=== PATIENT | male | born 1965 | race African-American/Black ===

== ENCOUNTER 2016-11-25 11:03 | Outpatient (CLI) | payer MEDICARE, OTHER ==
[2016-11-25] MEDS ORDERED: MYSOLINE50 MG GT (14:16)
[2016-11-25] MEDS ORDERED: ZOCOR20 M1 ORAL (14:16)
[2016-11-25] MEDS ORDERED: LISINOPRIL20 MG ORAL (14:16)
[2016-11-25] MEDS ORDERED: CARVEDILOL25 MG ORAL (14:16)
[2016-11-25] MEDS ORDERED: NORCO1 E1 ORAL (14:16)
--- NOTE | 2016-11-25 14:20 | GI Initial Consult Note ---
History of Present Illness General Date patient seen: Nov 25, 2016 Time patient seen: 10:00 Referring physician: ALFONSO Reason for Consultation: BLOODY STOOLS Present Illness HPI 51 year old male referred by Dr. Canales for evaluation of bloody stools per report of the patient. Pt presents today, stated he had an episode of bloody bright red stool x 1. Has no reoccurrence since then, wishes to have a colonoscopy performed to evaluate. Pt has no history of any endoscopic procedures. Denies any changes in weight, dietary habits and denies any dizziness or light headedness. No other GI symptoms noted. Home Meds Reported Medications Simvastatin (ZOCOR) 20 Mg Tablet, 30 MG ORAL BEDTIME, TAB 11/25/16 Primidone (Primidone) 50 Mg Tablet, 50 MG GT, TAB 11/25/16 Carvedilol* (CARVEDILOL*) 25 Mg Tablet, 50 MG ORAL EVERY 12 HOURS, TAB 11/25/16 Lisinopril (LISINOPRIL*) 20 Mg Tablet, 20 MG ORAL DAILY, TAB 11/25/16 Acetaminophen/Hydrocodone ([place] 7.5-325 Tablet) 1 Each Tablet, 1 TAB ORAL Q4H Y , #30 TAB 0 Refills 11/25/16 Med list reviewed/reconciled: Yes Allergies: Coded Allergies: No Known Allergies (Unverified , 11/25/16) Patient History History Provided By: Patient PMH Narrative CHF elevate cholesterol HTN Back Pain PSHx varicose vein surgery Pertinent Family History: none Social History: Denies: alcohol use, drug use, other, smoking Review of Systems All Other Systems: negative except mentioned in HPI Physical Exam T 97.9 BP 111/77 P 83 97 RA HT 5-8 WT 200 Sp02 EP Interpretation: reviewed General Appearance: well appearing, no apparent distress, alert Head: normocephalic EENT: PERRL/EOMI, normal ENT inspection Neck: normal inspection, full range of motion, supple Respiratory: chest non-tender, normal breath sounds, no respiratory distress Cardiovascular: normal rate Gastrointestinal: normal inspection, non tender, soft, normal bowel sounds, no bruit Rectal: deferred Genitourinary: normal inspection Musculoskeletal: normal inspection, back normal Neurologic: normal inspection, alert, oriented x3, responsive Psychiatric: normal inspection, judgement/insight normal, memory normal Skin: normal inspection, normal color, no rash Lymphatic: normal inspection, no adenopathy GI: Plan Problems: (1) HTN (hypertension) (2) Elevated cholesterol (3) CHF (congestive heart failure) (4) Back pain (5) Colonoscopy planned Plan EGD/colonoscpy scheduled for 12/01/16. - CLD & [employer] prep instructions given and acknowledged. Seen with Dr. Ayers. Thank you for referring this patient. Ashly Toussaint N.P. Nov 25, 2016 14:20
== END 2016-11-25 11:30 | disposition home or self-care (01) ==
LOC: PAN 11:03
DX: K92.1 Melena (principal); I11.0 Hypertensive heart disease with heart failure; I50.9 Heart failure, unspecified; M54.9 Dorsalgia, unspecified; E78.00 Pure hypercholesterolemia, unspecified
CPT/HCPCS: 99201

== ENCOUNTER 2016-12-01 06:34 | Day surgery (SDC) | payer MEDICARE, OTHER ==
[~2016-12-01] VITALS: Ht 172.7 cm; Wt 90.7 kg
[2016-12-01] VITALS (7 sets, daily range): BP systolic 99–132; BP diastolic 61–79
[~2016-12-01 06:34] MED LIST: CARVEDILOL25 MG ORAL; FLOMAX0.4 MG ORAL; LISINOPRIL20 MG ORAL; MYSOLINE50 MG PO; NORCO1 E1 ORAL; ZOCOR20 M1 ORAL
[2016-12-01] MEDS ORDERED: Lidocaine 1% MPF 10mg/ml 5ml ONE (09:00)
[2016-12-01] MEDS ORDERED: NS Irrig 1000ml ONE (09:00)
[2016-12-01] MEDS ORDERED: Propofol 10mg/ml 20ml IV ONE (09:00)
--- NOTE | 2016-12-01 09:02 | Pre-Procedure Note/Attestation ---
Pre-Procedure Note/Attestation Complete Prior to Procedure Planned Procedure: not applicable Procedure Narrative: esophagogastroduodenoscopy and colonoscopy Indications for Procedure Pre-Operative Diagnosis: screening colon, GERD Attestation I attest that I discussed the nature of the procedure; its benefits; risks and complications; and alternatives (and the risks and benefits of such alternatives ), prior to the procedure, with the patient (or the patient's legal internet sales representative). I attest that, if there was a reasonable possibility of needing a blood transfusion, the patient (or the patient's legal internet sales representative) was given the [facility] of Health Services standardized written summary, pursuant to the Rodrigo [place] Blood Safety Act ([place] Health and Safety Code # 1645, as amended). I attest that I re-evaluated the patient just prior to the surgery and that there has been no change in the patient's H&P, except as documented below: BOB PARTIDA Dec 01, 2016 09:02
--- NOTE | 2016-12-01 09:03 | Short Stay Surgery H&P ---
History of Present Illness History of Present Illness Chief Complaint see full consult note HPI Aramis Montemayor is a 51 year old male who was admitted on for Gerd,Colon Screening Patient History Allergies: Coded Allergies: No Known Allergies (Unverified , 11/25/16) PAST MEDICAL HISTORY: Past Surgeries: Social History: Medication History Scheduled Carvedilol* (Carvedilol*), 50 MG ORAL EVERY 12 HOURS, (Reported) Lisinopril (Lisinopril*), 20 MG ORAL DAILY, (Reported) Simvastatin (Zocor), 30 MG ORAL BEDTIME, (Reported) Tamsulosin HCl (Flomax), 0.4 MG ORAL DAILY, (Reported) Scheduled PRN Acetaminophen/Hydrocodone ([place] 7.5-325 Tablet), 1 TAB ORAL Q4H PRN, (Reported) Miscellaneous Medications Primidone (Primidone), 50 MG PO, (Reported) Physical Exam Vital Signs Last Vital Signs Date Time Temp Pulse Resp B/P Pulse Ox O2 Delivery O2 Flow Rate FiO2 12/01/16 07:00 98.2 83 18 114/72 94 Room Air Plan Attestation Are the patient's medical conditions optimized for surgery? BOB PARTIDA Dec 01, 2016 09:03
--- NOTE | 2016-12-01 09:36 | Anethesia Preoperative Eval ---
Anesthesia Pre-op PMH/ROS General Date of Evaluation: Dec 01, 2016 Time of Evaluation: 09:32 Anesthesiologist: la ASA Score: ASA 3 Mallampati Score Class I : Soft palate, uvula, fauces, pillars visible Class II: Soft palate, uvula, fauces visible Class III: Soft palate, base of uvula visible Class IV: Only hard plate visible Mallampati Classification: Class III Surgeon: Armen Diagnosis: gerd Surgical Procedure: EGD/Colon Anesthesia History: none Social History: smoking, current smoker Family History: no anesthesia problems Allergies: Coded Allergies: No Known Allergies (Unverified , 11/25/16) Medications: see eMAR Past Medical History Cardiovascular: Reports: HTN Pulmonary: Denies: COPD, [place], asthma, other Gastrointestinal/Genitourinary: Reports: GERD Neurologic/Psychiatric: Denies: CVA, TIA, dementia, depression/anxiety, other Endocrine: Denies: DM, hypothyroidism, other, steroids HEENT: Denies: [place] (L), [place] (R), cataract (L), cataract (R), glaucoma, other Hematology/Immune: Denies: DVT, anemia, bleeding disorder, other Musculoskeletal/Integumentary: Denies: DDD, DJD, OA, RA, edema, other PSxH Narrative: leg surgry Anesthesia Pre-op Phys. Exam Physician Exam Last Vital Signs Date Time Temp Pulse Resp B/P Pulse Ox O2 Delivery O2 Flow Rate FiO2 12/01/16 07:00 98.2 83 18 114/72 94 Room Air Constitutional: NAD Neurologic: CN 2-12 intact Cardiovascular: RRR, no M/R/G Gastrointestinal: S/NT/ND, other Airway Exam Mallampati Score: Class III MO: full Teeth: loose - front Dentures: no lower, no upper Anesthesia Pre-op A/P Studies Pre-op Studies: EKG - nsr Risk Assessment & Plan Plan: MAC Status Change Before Surgery: No Pre-Antibiotics Given Within 1 Hr of Incision: Dana Moscoso CRNA Dec 01, 2016 09:35
--- NOTE | 2016-12-01 09:39 | Endoscopy Procedure Note ---
Endoscopy Procedure Note Indication for Procedure: screening colon, GERD Procedures Performed: EGD, colonoscopy Operative Findings/Diagnosis: 3 colon polyps, gastric ulcer Specimen: yes Pt Tolerated Procedure Well: Yes Estimated Blood Loss: none Anesthesiologist: mariangel Anesthesia: MAC Implant(s) used?: No 50 yrs or older w/o bx or poly: No 10yrs. F/U not recommended: Yes If not recommended, why?: Above average risk 10 yrs. F/U needed: Yes 18 years or older w/prev. colo: No BOB PARTIDA Dec 01, 2016 09:38
--- NOTE | 2016-12-01 09:47 | Immediate Post-Op Evaluation ---
Immediate Post-Op Evalulation Immediate Post-Op Evalulation Procedure: egd/colon Date of Evaluation: Dec 01, 2016 Time of Evaluation: 09:45 IV Fluids: 500 Blood Pressure Systolic: 120 Blood Pressure Diastolic: 80 Pulse Rate: 72 Respiratory Rate: 15 O2 Sat by Pulse Oximetry: 97 Temperature (Fahrenheit): 97.1 Nausea: No Vomiting: No Complications None Patient Status: awake, patent Hydration Status: adequate Given Within 1 Hr of Incision: Dana Moscoso CRNA Dec 01, 2016 09:47
--- NOTE | 2016-12-01 10:09 | 48 Hour Post Anesthesia Eval ---
Post Anesthesia Evaluation Procedure: egd/colon Date of Evaluation: Dec 01, 2016 Time of Evaluation: 10:07 Blood Pressure Systolic: 120 0: 70 Pulse Rate: 72 Respiratory Rate: 14 Temperature (Fahrenheit): 97.1 O2 Sat by Pulse Oximetry: 98 Airway: patent Nausea: No Vomiting: No Hydration Status: adequate Mental Status/LOC: patient returned to baseline Post-Anesthesia Complications: none Follow-up care needed: patient intructions given Dana Killian CRNA Dec 01, 2016 10:09
--- NOTE | 2016-12-01 13:45 | Procedure Note ---
DATE OF PROCEDURE: 12/01/2016 SURGEON: Irineo Ayers M.D. PROCEDURE: EGD, colonoscopy. INDICATION: Screening colonoscopy evaluation and chronic GERD. REASON FOR PROCEDURE: The procedure, risks, benefits, and possible consequences, including hemorrhage, aspiration, perforation and infection, and alternative treatments, were explained to the patient/legal guardian by Dr. Irineo Ayers and the patient/legal guardian understood and accepted these risks. DESCRIPTION OF PROCEDURE: After informed consent was obtained and the patient was adequately sedated, first Olympus upper endoscope was advanced from mouth into the second portion of duodenum and retroflexion performed in the stomach. The patient had multiple erosions in the pre-pyloric region and may be one or two shallow ulcerations in that area. Biopsy from antrum was obtained to rule out H. pylori infection. The rest of the upper endoscopic examination was grossly within normal limits. At this time, the upper endoscope was retrieved and the patient was turned over for colonoscopy. First rectal exam was performed, which shows positive for internal hemorrhoid. Then, the scope was advanced from the rectum into the cecum documented by appendiceal orifice, ileocecal valve, and right upper quadrant palpation. Quality of prep was very good. The patient had total of three polyps in this colonoscopy examination. One sessile maybe about 6 to 7 mm polyp in the transverse colon removed with the hot snare polypectomy technique. There were two polyps, one in the rectum and one in the rectosigmoid area. The rectosigmoid area was diminutive and removed with cold biopsy forceps technique. The one in the rectum was above the dentate line and removed with cold snare technique. The patient tolerated the procedure well without any complication. Retroflexion of rectum showed evidence of medium-sized internal hemorrhoids. SUMMARY OF FINDINGS: 1. Multiple antral erosions and maybe one or two shallow gastric ulceration. 2. Gastritis, status post biopsy. 3. Three colonic polyps removed, see above for details. 4. Internal hemorrhoids. RECOMMENDATIONS: 1. Follow up biopsies and treat accordingly. 2. Given three polyps, we recommend to repeat colonoscopy in three years. I want to thank, Dr. Dunaway, for this kind referral. Irineo Marcos Ayers DR: LATHA JOB#: [id number] CC: Nallely Dunaway M.D.; Fax#: [phone] [facility]
== END 2016-12-01 10:50 | disposition home or self-care (01) ==
LOC: GAS 06:34
DX: Z12.11 Encounter for screening for malignant neoplasm of colon (principal); D12.7 Benign neoplasm of rectosigmoid junction; D12.3 Benign neoplasm of transverse colon; K64.8 Other hemorrhoids; K21.9 Gastro-esophageal reflux disease without esophagitis; K25.7 Chronic gastric ulcer without hemorrhage or perforation; B96.81 Helicobacter pylori [H. pylori] as the cause of diseases classified elsewhere; K25.9 Gastric ulcer, unspecified as acute or chronic, without hemorrhage or perforation; I10 Essential (primary) hypertension; F17.200 Nicotine dependence, unspecified, uncomplicated
CPT/HCPCS: 43239; 45380; 45385; 93005; J2704; 94003; 94150

== ENCOUNTER 2016-12-15 13:21 | Outpatient (CLI) | payer MEDICARE, OTHER ==
[2016-12-15 13:31] VITALS: BP 138/88
--- NOTE | 2016-12-15 13:47 | GI Progress Note ---
Assessment/Plan Status: stable Status Narrative Seen with Dr. Ayers. Assessment/Plan SUMMARY OF FINDINGS: 1. Multiple antral erosions and maybe one or two shallow gastric ulceration. 2. Gastritis, status post biopsy. 3. Three colonic polyps removed, see above for details. 4. Internal hemorrhoids. RECOMMENDATIONS: Follow up biopsies and treat accordingly. >> H. Pylori Positive >> Biaxin + Amox + Omeprazole Given three polyps, we recommend to repeat colonoscopy in three years. RTC x 3 month for repeat HP test Subjective Gastrointestinal/Abdominal: Reports: no symptoms Subjective rectal bleed has stopped had CT performed at [facility] Objective Last 24 Hour Vital Signs Date Time Temp Pulse Resp B/P (MAP) Pulse Ox O2 Delivery O2 Flow Rate FiO2 12/15/16 13:31 98.3 86 16 138/88 General Appearance: no apparent distress, alert Cardiovascular: normal rate Respiratory/Chest: normal breath sounds, no respiratory distress Abdominal Exam: normal bowel sounds, non tender, soft Extremities: normal range of motion Ashly Toussaint N.P. Dec 15, 2016 13:47
== END 2016-12-15 14:00 | disposition home or self-care (01) ==
LOC: PAN 13:21
DX: K29.70 Gastritis, unspecified, without bleeding (principal); Z86.010 Personal history of colon polyps; K64.8 Other hemorrhoids
CPT/HCPCS: 99211

== ENCOUNTER 2017-01-31 07:25 | Day surgery (SDC) | payer MEDICARE, OTHER ==
[~2017-01-31] VITALS: Ht 174 cm; Wt 90.7 kg
[2017-01-31] VITALS (11 sets, daily range): BP systolic 137–177; BP diastolic 77–108
[~2017-01-31 07:25] MED LIST changes: +Bupivacaine w/Epi 0.5% 30ml Vial INJ ONE
--- NOTE | 2017-01-31 07:49 | Pre-Procedure Note/Attestation ---
Pre-Procedure Note/Attestation Complete Prior to Procedure Planned Procedure: bilateral Procedure Narrative: repair bilateral inguinal herniae with mesh Indications for Procedure Pre-Operative Diagnosis: bilateral inguinal herniae Attestation I attest that I discussed the nature of the procedure; its benefits; risks and complications; and alternatives (and the risks and benefits of such alternatives ), prior to the procedure, with the patient (or the patient's legal abrasives sales representative). I attest that, if there was a reasonable possibility of needing a blood transfusion, the patient (or the patient's legal abrasives sales representative) was given the [facility] of Health Services standardized written summary, pursuant to the Rodrigo Lucinda Blood Safety Act ([place] Health and Safety Code # 1645, as amended). I attest that I re-evaluated the patient just prior to the surgery and that there has been no change in the patient's H&P, except as documented below:none NISH BRISCOE Jan 31, 2017 07:49
[2017-01-31] MEDS ORDERED: LR 1000ml ONE (09:00)
[2017-01-31] MEDS ORDERED: Midazolam 2mg/2ml Inj ONE (09:00)
[2017-01-31] MEDS ORDERED: Sterile Water Irrig 1000ml IRRIG ONE (09:00)
[2017-01-31] MEDS ORDERED: Propofol 200mg/20ml IV ONE (09:00)
[2017-01-31] MEDS ORDERED: fentaNYL 100 mcg/2 mL IV ONE (09:00)
[2017-01-31] MEDS ORDERED: NS Irrig 1000ml ONE (09:00)
[2017-01-31] MEDS ORDERED: Lidocaine 1% MPF 10mg/ml 5ml ONE (09:00)
[2017-01-31] MEDS ORDERED: NS Irrig 1000ml IRRIG ONE (09:50)
[2017-01-31] MEDS ORDERED: LR 1000ml 1,000 ML IVLG SCH (10:07)
[2017-01-31] MEDS ORDERED: LR 1000ml 1,000 ML IV SCH (10:15)
[2017-01-31] MEDS ORDERED: Meperidine 50mg/ml Inj(FOR RIGORS ONLY) IVP ONE (10:15)
[2017-01-31] MEDS ORDERED: DiphenhydrAMINE 50mg/ml Inj IVP PRN (10:15)
[2017-01-31] MEDS ORDERED: Ketorolac 30mg Inj IV PRN (10:15)
--- NOTE | 2017-01-31 10:15 | Anethesia Preoperative Eval ---
Anesthesia Pre-op PMH/ROS General Date of Evaluation: Jan 31, 2017 Time of Evaluation: 09:10 Anesthesiologist: Meghan ASA Score: ASA 3 Mallampati Score Class I : Soft palate, uvula, fauces, pillars visible Class II: Soft palate, uvula, fauces visible Class III: Soft palate, base of uvula visible Class IV: Only hard plate visible Mallampati Classification: Class II Surgeon: Twan Diagnosis: Bilateral inguinal hernias Surgical Procedure: Bilateral inguinal herniorrhaphy Family History: no anesthesia problems Allergies: Coded Allergies: No Known Allergies (Unverified , 01/27/17) Medications: see eMAR Past Medical History Cardiovascular: Reports: HTN, CAD, other - CHF Pulmonary: Reports: COPD Gastrointestinal/Genitourinary: Denies: GERD, CRI, ESRD, other Neurologic/Psychiatric: Denies: dementia, CVA, depression/anxiety, TIA, other Endocrine: Denies: DM, hypothyroidism, steroids, other HEENT: Denies: cataract (L), cataract (R), glaucoma, [place] (L), [place] (R), other Hematology/Immune: Denies: anemia, DVT, bleeding disorder, other Musculoskeletal/Integumentary: Denies: OA, RA, DJD, DDD, edema, other PMH Narrative: HTN, CAD, CHF, COPD PSxH Narrative: Varicose vein stripping Anesthesia Pre-op Phys. Exam Physician Exam Last Vital Signs Date Time Temp Pulse Resp B/P (MAP) Pulse Ox O2 Delivery O2 Flow Rate FiO2 01/31/17 07:56 98.0 76 18 137/88 97 Room Air Constitutional: NAD Neurologic: CN 2-12 intact Cardiovascular: RRR, no M/R/G Respiratory: CTA Gastrointestinal: S/NT/ND Airway Exam Mallampati Score: Class II MO: full ROM: full Teeth: other - One upper front tooth prosthesis Anesthesia Pre-op A/P Labs WNL Studies Pre-op Studies: EKG - NSR Risk Assessment & Plan Assessment: Class 3 patient for bilateral inguinal herniorrhaphies Plan: GA, LMA Status Change Before Surgery: No Pre-Antibiotics Drug: Ancef Given Within 1 Hr of Incision: Yes Time Given: 09:30 TOMÁS NAVA M.D. Jan 31, 2017 10:15
--- NOTE | 2017-01-31 10:16 | Immediate Post-Op Evaluation ---
Immediate Post-Op Evalulation Immediate Post-Op Evalulation Procedure: Bilateral inguinal herniorrhaphies Date of Evaluation: Jan 31, 2017 Time of Evaluation: 12:00 IV Fluids: 900 Blood Pressure Systolic: 176 Blood Pressure Diastolic: 108 Pulse Rate: 94 Respiratory Rate: 18 O2 Sat by Pulse Oximetry: 93 Temperature (Fahrenheit): 98.6 Pain Score (1-10): 1 Nausea: No Vomiting: No Complications No complication Patient Status: awake, patent, none Hydration Status: adequate Drug: Ancef Given Within 1 Hr of Incision: Yes Time Given: 09:30 TOMÁS NAVA M.D. Jan 31, 2017 10:16
--- NOTE | 2017-01-31 11:46 | Brief Operative Note ---
Immediate Post Operative Note Operative Note Pre-op Diagnosis: bilateral inguinal herniae Procedure: repair bilat inguinal herniae with mesh Post-op Diagnosis: same as pre-op Surgeon: Jae Anesthesiologist: cyrus Anesthesia: general, local Specimen: none Complications: none Condition: stable Fluids: per anesthesia Estimated Blood Loss: minimal Drains: none Implant(s) used?: Yes - mesh NISH BRISCOE Jan 31, 2017 11:46
[2017-01-31] MEDS: Hydromorphone 0.5mg/0.5ml inj IVP PRN ×2 (11:55→12:13)
--- NOTE | 2017-01-31 11:59 | 48 Hour Post Anesthesia Eval ---
Post Anesthesia Evaluation Procedure: Bilateral inguinal herniorrhaphies Date of Evaluation: Jan 31, 2017 Time of Evaluation: 12:30 Blood Pressure Systolic: 170 0: 100 Pulse Rate: 92 Respiratory Rate: 19 O2 Sat by Pulse Oximetry: 93 Airway: patent Nausea: No Vomiting: No Pain Intensity: 1 Hydration Status: adequate Cardiopulmonary Status: Stable Mental Status/LOC: patient returned to baseline Follow-up Care/Observations: As per surgery patient must void prior to discharge or patient should be discharged with major catheter. Post-Anesthesia Complications: No anesthetic complication Follow-up care needed: N/A TOMÁS NAVA M.D. Jan 31, 2017 11:59
[2017-01-31] MEDS ORDERED: D5 1/2NS 1,000 ML IV SCH (12:00)
[2017-01-31] MEDS ORDERED: Tylenol #3 tab (300mg/30mg) ORAL PRN (12:00)
[2017-01-31] MEDS ORDERED: Norco 5mg/325mg tab ORAL PRN (12:00)
[2017-01-31] MEDS ORDERED: HYDROmorphone 1mg/ml Carpuject SUBQ PRN (12:00)
--- NOTE | 2017-02-01 06:46 | Operative Note - Dictated ---
DATE OF OPERATION: 01/31/2017 SURGEON: Nicanor Rowe M.D. PREOPERATIVE DIAGNOSIS: Bilateral inguinal hernias. POSTOPERATIVE DIAGNOSIS: Bilateral inguinal hernias - direct. PROCEDURE: Repair of bilateral inguinal hernias with mesh. INDICATION: This is a very pleasant 51-year-old gentleman, patient of Dr. Dunaway, referred for evaluation for bilateral hernias. The patient was found to have the same. He is scheduled for elective repair of these hernias with mesh. The procedures, benefits, complications including bleeding, infection, anesthetic complications, possibility of injury to cord structures, possibility of recurrence of the hernias discussed in detail with the patient. He understands the above and agrees to proceed. OPERATIVE FINDINGS: The patient had large direct inguinal hernias. There is no evidence of any indirect component, repaired in the following manner. PROCEDURE IN DETAIL: The patient was identified in the preoperative holding area and the surgery was discussed. He was brought to the operating room, induced under general anesthesia, endotracheal intubation. The abdomen was prepped with Betadine and draped in a sterile manner. Time-out performed confirming the patient's position, procedure, anesthesia, antibiotic, and allergy status. Right side was repaired first. Incision was made in the right groin and carried down the skin and subcutaneous tissue. The Rustam's fascia was identified and nicked and opened down to the external ring and superolaterally. The ilioinguinal nerve was identified and with careful mobilization, retracted out of the field. Cord structures were then encircled with a Meera drain of the pubic tubercle and dissected back to the internal ring. This was noted to be a fairly large direct inguinal hernia on the right side containing fat. This was reduced and then imbricated with running 2-0 Vicryl to hold in place while the mesh is being placed. A piece of Marlex mesh approximately 6 x 12 cm cut in the shape of the parabola with longitudinal split half the length of the mesh. One side of the mesh was sutured to the transversalis fascia with a running 2-0 Prolene. The other side was sutured to the shelving border of the inguinal ligament with 2-0 Prolene. Both suture lines were carried up and above the internal ring and sutured to the fascia themselves, which were reinforcing the ring and was tested, found to be admit a fingertip. The mesh was trimmed. Cord structures and the ilioinguinal nerve were replaced in normal position after making sure the sponge and needle count was correct. The external oblique fascia was then closed with running 2-0 Vicryl. The Rustam's fascia was approximated with 3-0 Vicryl, skin closed with running 4-0 Vicryl, reinforced with Steri-Strips and dry sterile dressing. At this point, the identical procedure was performed on the other side. There was also found to have a direct inguinal hernia that was imbricated and repaired in the identical manner. Blood loss for the entire procedure was less than 5 mL. The patient tolerated the procedure well. Local infiltration with total 20 mL of 0.25% Marcaine with epinephrine. The wounds were covered with Steri-Strips, 4x4, and OpSite dressing. The patient sent to recovery room awake in stable condition. Nicanor Rowe M.D. DR: SABINE JOB#: [id number] CC: Nallely Dunaway M.D.; Fax#: [phone]
== END 2017-01-31 14:00 | disposition home or self-care (01) ==
LOC: SUR 07:25
DX: K40.20 Bilateral inguinal hernia, without obstruction or gangrene, not specified as recurrent (principal); I25.10 Atherosclerotic heart disease of native coronary artery without angina pectoris; I11.0 Hypertensive heart disease with heart failure; E78.00 Pure hypercholesterolemia, unspecified; G62.9 Polyneuropathy, unspecified; J44.9 Chronic obstructive pulmonary disease, unspecified
CPT/HCPCS: 49505; C1781; J0360; J0690; J1170; J1885; J2250; J2405; J2704; J3010; J7120; 94003; 94150

== ENCOUNTER 2017-03-28 12:52 | Outpatient (CLI) | payer MEDICARE, OTHER ==
[~2017-03-28 12:52] MED LIST changes: -Bupivacaine w/Epi 0.5% 30ml Vial INJ ONE
--- NOTE | 2017-03-28 14:19 | GI Progress Note ---
Assessment/Plan Problems: (1) H. pylori infection ICD Codes: A04.8 - Other specified bacterial intestinal infections SNOMED: 160224977 (2) Elevated cholesterol ICD Codes: E78.00 - Pure hypercholesterolemia, unspecified SNOMED: 57479274 (3) HTN (hypertension) ICD Codes: I10 - Essential (primary) hypertension SNOMED: 21908880 Status: stable Status Narrative Seen with Dr. Ayers. Assessment/Plan SUMMARY OF FINDINGS: 1. Multiple antral erosions and maybe one or two shallow gastric ulceration. 2. Gastritis, status post biopsy. 3. Three colonic polyps removed, see above for details. 4. Internal hemorrhoids. Follow up biopsies and treat accordingly. >> H. Pylori Positive >> Biaxin + Amox + Omeprazole RECOMMENDATIONS: Repeat Breath Test, will follow up results with patient Given three polyps, we recommend to repeat colonoscopy in three years. RTC prn Subjective Gastrointestinal/Abdominal: Reports: no symptoms Subjective had Bilateral inguinal hernia surgery recently Objective T 97.8 135/91 P 87 95 RA Denies any unintentional weight loss or changes in dietary habits. General Appearance: WD/WN, no apparent distress, alert Cardiovascular: normal rate Respiratory/Chest: normal breath sounds, no respiratory distress Abdominal Exam: normal bowel sounds, non tender, soft Extremities: normal range of motion, non-tender Ashly Toussaint N.P. Mar 28, 2017 14:19
[2017-03-28 15:29] VITALS: BP 135/91
== END 2017-03-28 13:25 | disposition home or self-care (01) ==
LOC: PAN 12:52
DX: K29.70 Gastritis, unspecified, without bleeding (principal); A04.8 Other specified bacterial intestinal infections; E78.00 Pure hypercholesterolemia, unspecified; I10 Essential (primary) hypertension; K63.5 Polyp of colon; K64.8 Other hemorrhoids
CPT/HCPCS: 83013

== ENCOUNTER 2019-06-26 10:45 | Emergency (ER) | payer MEDICARE, OTHER ==
[~2019-06-26] VITALS: Ht 171.4 cm; Wt 84.4 kg
[2019-06-26 10:55] VITALS: BP 120/82
--- NOTE | 2019-06-26 10:57 | NUR ---
ED Nurse Note: pt walked in to Ed due to swollen on right upper eyelid. per pt, woke up with it. unable to open eye initally. getting better. no vision changes. no itchness or pain reported. no redness or local fever noted. AAO x4. respirations even and non-labored noted. will wait for the further order.
[2019-06-26] MEDS ORDERED: DiphenhydrAMINE 25mg Tab ORAL ONE (11:00)
[2019-06-26] MEDS ORDERED: BENADRYL25 M3 PO (11:04)
[2019-06-26] MEDS ORDERED: CLINDAMYCIN HC300 MG ORAL (11:04)
--- NOTE | 2019-06-26 11:07 | Emergency Room Report ---
History of Present Illness General Chief Complaint: Eye Problems Source: Patient, Medical Record Present Illness HPI Patient is a 53-year-old male past medical history of chronic back pain who presents to the ER complaining of swelling around his right eye that he woke up with this morning. He denies any pain. He denies any visual changes. He denies any discharge from his eye. He denies any history of similar symptoms in the past. He denies any chest pain or shortness of breath. He denies any fever or chills. Allergies: Coded Allergies: No Known Allergies (Unverified , 01/27/17) Patient History Past Medical History: other - Chronic back pain Past Surgical History: none Social History: Reports: smoking Nursing Documentation-[facility] Past Medical History: No History, Except For Hx Cardiac Problems: Yes Hx Hypertension: Yes Hx Cancer: No Hx Gastrointestinal Problems: No Hx Neurological Problems: No Review of Systems All Other Systems: negative except mentioned in HPI Physical Exam Vital Signs Date Time Temp Pulse Resp B/P (MAP) Pulse Ox O2 Delivery O2 Flow Rate FiO2 06/26/19 10:51 97.3 79 18 120/82 (95) 96 Room Air Sp02 EP Interpretation: reviewed, normal General Appearance: no apparent distress, alert, GCS 15, non-toxic Head: normocephalic, atraumatic, other - Right periorbital edema with mild erythema no tenderness to palpation no obvious deformity no discharge no painful EOMI Eyes: bilateral eye normal inspection, bilateral eye PERRL, bilateral eye EOMI ENT: hearing grossly normal, normal pharynx, no angioedema, normal voice Neck: full range of motion, supple/symm/no masses Respiratory: chest non-tender, lungs clear, normal breath sounds, speaking full sentences Cardiovascular #1: regular rate, rhythm, no edema Gastrointestinal: normal bowel sounds, non tender, soft, non-distended, no guarding, no rebound Rectal: deferred Genitourinary: normal inspection, no CVA tenderness Musculoskeletal: back normal, normal range of motion, calf tenderness, gait/ station normal, non-tender Neurologic: alert, motor strength/tone normal, oriented x3, sensory intact, responsive, speech normal Psychiatric: judgement/insight normal, memory normal, mood/affect normal, no suicidal/homicidal ideation Skin: no rash Lymphatic: no adenopathy Medical Decision Making Diagnostic Impression: Primary Impression: Periorbital edema ER Course Unclear if this is periorbital cellulitis versus an allergic reaction. Patient has been treated with clindamycin as well as Benadryl. He will follow-up at his local clinic within 2 days after discussing risks and benefits of further diagnostics, treatment plans, as well as indications for and risks of admission , the patient is agreeable to being discharged home. I have explained that their evaluation and treatment in the emergency department today is an important step towards them achieving better health but that their evaluation today is not intended to replace further evaluation and treatment by a physician in their local clinic. I have explained that while the current findings suggest no immediate life threatening emergency they will require further evaluation and treatment by a physician of their choice in their area. They understand that it will be necessary for them to review the final reports of their ED visit with their clinic physician. We have reviewed indications for return to the Emergency Department. I have explained that additional time may need to pass and/or additional testing as an outpatient may be necessary before a definitive diagnosis can be made. They tell me they are willing to follow up as instructed within the timeframe I recommend. They appear to understand what we discussed. Additionally they understand that if they are unable to be seen by an outpatient physician they are welcome, and in fact should, return to the Emergency Department for a repeat evaluation. The patient is stable at time of discharge. Last Vital Signs Date Time Temp Pulse Resp B/P (MAP) Pulse Ox O2 Delivery O2 Flow Rate FiO2 06/26/19 10:55 97.3 18 120/82 96 Room Air 06/26/19 10:51 79 Disposition: HOME, SELF-CARE Condition: Stable Scripts Clindamycin Hcl (CLINDAMYCIN HCL) 300 Mg Capsule 300 MG ORAL FOUR TIMES A DAY for 7 Days, CAP Prov: Coco Kenney M.D. 06/26/19 Diphenhydramine HCl (Benadryl) 25 Mg Capsule 25 MG PO EVERY 8 HOURS, #30 CAP Prov: Coco Kenney M.D. 06/26/19 Referrals: [facility] Patient Instructions: Edema, Ioef-no-Bpoc Coco Kenney M.D. Jun 26, 2019 11:07
[2019-06-26 11:18] VITALS: BP 122/68
--- NOTE | 2019-06-26 11:19 | NUR ---
ED Nurse Note: Pt cleared by health care Provider for discharge. Patient started the first dose of medications prior to leave. DC instructions/prescription was given and explained to pt and verbalized understanding of teachings. All medical deviecs such as ID band removed. Pt is AAO x4, ambulatory and left with all personal belongings.
[2019-06-26] MEDS ORDERED: Clindamycin 150mg cap ORAL SCH (12:00)
== END 2019-06-26 11:17 | disposition home or self-care (01) ==
LOC: EMR 11:15
DX: H02.843 Edema of right eye, unspecified eyelid (principal); I10 Essential (primary) hypertension; F17.200 Nicotine dependence, unspecified, uncomplicated
CPT/HCPCS: 99282

== ENCOUNTER 2020-03-19 13:47 | Outpatient (CLI) | payer MEDICARE, OTHER ==
[~2020-03-19 13:47] MED LIST changes: +BENADRYL25 M3 PO; +CLINDAMYCIN HC300 MG ORAL
[2020-03-19 14:28] VITALS: BP 111/68
== END 2020-03-19 15:47 | disposition home or self-care (01) ==
LOC: PAN 13:47
DX: R10.9 Unspecified abdominal pain (principal)
CPT/HCPCS: 99212

== ENCOUNTER 2020-04-22 10:10 | Outpatient (CLI) | payer MEDICARE, OTHER ==
[2020-04-22 10:16] VITALS: BP 126/75
--- NOTE | 2020-04-22 10:27 | General Progress Note ---
Subjective ROS Limited/Unobtainable: Yes Allergies: Coded Allergies: No Known Allergies (Unverified , 01/27/17) Objective Last 24 Hour Vital Signs Date Time Temp Pulse Resp B/P (MAP) Pulse Ox O2 Delivery O2 Flow Rate FiO2 04/22/20 10:16 97.2 76 16 126/75 95 General Appearance: alert EENT: normal ENT inspection Neck: normal alignment Cardiovascular: normal rate Respiratory/Chest: lungs clear Abdomen: normal bowel sounds, non tender, soft Extremities: non-tender Assessment/Plan Assessment/Plan: SUMMARY OF FINDINGS: 1. A total of 7 polyps removed. See above for details. 2. Internal hemorrhoids. RECOMMENDATIONS: Repeat colonoscopy in 3 years. Irineo Ayers MD Apr 22, 2020 10:27
== END 2020-04-22 12:10 | disposition home or self-care (01) ==
LOC: PAN 10:10
DX: K63.5 Polyp of colon (principal); K64.8 Other hemorrhoids
CPT/HCPCS: 99212